=== PATIENT | male | born 1970 | race African-American/Black ===

== ENCOUNTER 2020-11-17 13:06 | Emergency (ER) | payer OTHER ==
[~2020-11-17] VITALS: Ht 198.1 cm; Wt 151.5 kg
[2020-11-17 16:17] VITALS: BP 173/109
[2020-11-17] MEDS ORDERED: HYDROcodone-ACET 5/325MG TAB PO ONE ×2 (16:45→17:30)
== END 2020-11-17 18:00 | disposition home or self-care (01) ==
LOC: ER 13:06
DX: S50.812A Abrasion of left forearm, initial encounter (principal); S80.212A Abrasion, left knee, initial encounter; I10 Essential (primary) hypertension; X58.XXXA Exposure to other specified factors, initial encounter; Y93.89 Activity, other specified; Y92.89 Other specified places as the place of occurrence of the external cause; Y99.8 Other external cause status